=== PATIENT | female | born 1995 | race African-American/Black ===

== ENCOUNTER 2018-01-16 18:35 | Emergency (ER) | payer MEDICAID ==
[~2018-01-16] VITALS: Ht 160 cm; Wt 47.4 kg
[2018-01-16 18:37] VITALS: BP 118/72
[2018-01-16] MEDS ORDERED: ONDANSETRON ODT 4 MG ONE (19:17)
[2018-01-16] MEDS ORDERED: ONDANSETRON ODT 4 MG PO ONE (19:30)
[2018-01-16 19:47] LABS: BASOPHILS # (AUTO) 0.02 x10^3/uL (0-0.1); BASOPHILS % (AUTO) 0 % (0-1); EOSINOPHILS # (AUTO) 0.01 x10^3/uL (0-0.4); EOSINOPHILS % (AUTO) 0 % (1-7); LYMPHOCYTES # (AUTO) 1.07 x10^3/uL (1-3.4); LYMPHOCYTES % (AUTO) 21 % (22-44); MD NO; MEAN CORPUSCULAR HEMOGLOBIN 33.2 pg (27.0-34.8); MEAN CORPUSCULAR HGB CONC 34.3 g/dL (32.4-35.8); MEAN CORPUSCULAR VOLUME 96.7 fL (80-100); MEAN PLATELET VOLUME 8.3 fL (7.4-10.4); MONOCYTES # (AUTO) 0.26 x10^3/uL (0.2-0.8); MONOCYTES % (AUTO) 5 % (2-9); NEUTROPHILS # (AUTO) 3.83 x10^3/uL (1.8-6.8); NEUTROPHILS % (AUTO) 74 % (42-75); PLATELET COUNT 261 x10^3/uL (130-400); RED BLOOD COUNT 4.27 x10^6/uL (3.82-5.3); RED CELL DISTRIBUTION WIDTH 12.2 % (9.6-15.2)
[2018-01-16 19:54] LABS: ALANINE AMINOTRANSFERASE 18 U/L (12-78); ALBUMIN 3.8 g/dL (3.4-5.0); ANION GAP 7 mmol/L (5-15); CALCIUM 8.8 mg/dL (8.5-10.1); CHLORIDE 107 mmol/L (98-107); CREATININE 0.95 mg/dL (0.55-1.02)
[2018-01-16 19:56] LABS: ALKALINE PHOSPHATASE 59 U/L (45-117); BILIRUBIN,TOTAL 0.5 mg/dL (0.2-1.0); TOTAL PROTEIN 9.1 g/dL (6.4-8.2)
[2018-01-16 20:13] LABS: HCG UR SG 1.034 (1.003-1.030)
[2018-01-16 20:14] LABS: MICROSCOPIC INDICATED
[2018-01-16 20:26] LABS: CULTURE INDICATED? YES
== END 2018-01-16 20:39 | disposition home or self-care (01) ==
LOC: ED 20:05
DX: R11.2 Nausea with vomiting, unspecified (principal); K08.89 Other specified disorders of teeth and supporting structures; J02.9 Acute pharyngitis, unspecified; R10.9 Unspecified abdominal pain
CPT/HCPCS: 36415; 80053; 81001; 81025; 83690; 85025; 87086; 99284; Q0162